=== PATIENT | female | born 1960 | race Caucasian/White ===

== ENCOUNTER → 2020-06-02 | Outpatient (CLI) | payer BC, OTHER ==
[~2020-06-02] MED LIST: COQ-10100 MG; FISH OIL 1,001000 M2; LISINOPRIL5 MG PO; MAGNESIUM OXID400 MG; MULTIVITAMINS1 EAC7 PO; NAPROSYN500 MG PO; NOVOLOG100 UNIT/1; PRILOSEC 10MG C10 M1 PO; PROBIOTIC1 EAC2 PO
== END ==
LOC: SJCVCIMAG 09:59
PROVIDERS: ATTEND Internal Medicine Cardiovascular Disease
DX: E78.5 Hyperlipidemia, unspecified (principal); E11.9 Type 2 diabetes mellitus without complications

== ENCOUNTER → 2020-09-23 | Outpatient (CLI) | payer BC, OTHER | LOC: SJCVCIMAG 14:18 | PROVIDERS: ATTEND Internal Medicine Cardiovascular Disease | DX: M79.661 Pain in right lower leg (principal); M79.662 Pain in left lower leg; M79.89 Other specified soft tissue disorders ==